=== PATIENT | female | born 1940 | race Caucasian/White ===

== ENCOUNTER 2025-05-19 05:54 | Inpatient (IN) | payer OTHER, SELFPAY ==
--- NOTE | 2025-04-28 11:52 | CM ---
Addendum entered by Qian Williamson RN 05/13/25 12:34:
Demographics: two story home
Living situation:Alone
Support Person Post Operatively: Daughters will provide supervision post operatively.
History of
VN: Current with [facility]
SNF: None
Outpatient : None, patient wants [facility]
Has patient purchased required equipment: yes, cane, walker, shower chair
PCP: Dr. Carpenter
Pharmacy: [facility]
Post Operative Discharge Plan: Home with [facility].
Addendum entered by Qian Williamson RN 05/05/25 14:24:
LEft message
Addendum entered by Qian Williamson RN 04/29/25 10:50:
Patient returned call. CM left another message.
Original Note:
CM left message for case management evaluation.
[2025-04-30 11:10] LABS: Hematocrit 35.2 % (37.0-47.0); Hemoglobin 11.4 g/dL (12.0-16.0); Mean Corp Hgb Conc. 32.4 g/dL (33.0-37.0); Mean Corpuscular Volume 94.1 fL (81.0-99.0); Platelet Count 270 10^3/uL (130-400); Red Cell Dist. Width 15.5 % (11.5-14.5)
[2025-04-30 11:32] LABS: ALT (SGPT) 20 U/L (0-35); AST (SGOT) 27 U/L (14-36); Albumin 4.0 g/dl (3.5-5.0); Alkaline Phosphatase 57 U/L (38-126); Blood Urea Nitrogen 19 mg/dl (7-17); Calcium 9.2 mg/dl (8.4-10.2); Carbon Dioxide 26 mmol/L (22-30); Chloride 111 mmol/L (98-107); Glucose 90 mg/dl (70-99); Potassium 3.8 mmol/L (3.5-5.1); Sodium 141 mmol/L (135-145); Total Protein 6.5 g/dl (6.3-8.2); eGFR > 60.00
[2025-04-30 11:46] LABS: Glycohemoglobin (HgbA1c) 5.6 % (4.0-5.6)
[2025-04-30 14:25] VITALS: BMI 22.7
[2025-04-30 18:25] VITALS: BMI 22.7
[2025-05-19] VITALS (13 sets, daily range): BP systolic 113–181; BP diastolic 62–94; PULSE 87; O2SAT 95
[2025-05-19] MEDS: TYLENOL 650 MG PO ×5 (06:21→23:29)
[2025-05-19] MEDS: CELEBREX 200 MG PO (06:21)
[2025-05-19] MEDS: NORMOSOL-R/PLASMALYTE-A 1000 IV ×2 (06:39→10:52)
[2025-05-19] MEDS: DILAUDID 2 MG PO ×3 (08:40→22:09)
[2025-05-19] MEDS: ZOFRAN 4 MG IV (08:46)
[2025-05-19] MEDS: DILAUDID 0.25 MG IV (09:22)
--- NOTE | 2025-05-19 10:25 | W.PN.UPDATE ---
Update Note
Progress Note Update
R knee OA s/p R TKA w/ Dr Hernandez 05/19/25
- s/p L TKA, 2022, by Dr. Cooper
DVT prophylaxis - ASA, b/l venous foot pumps
HTN - + parameters - monitor BP
NSVT, PACs - monitor on tele
- Continue BB
Chronic pain w/ opioid dependence - Dilaudid 2 mg TID w/ 4 mg q4hprn for breakthrough while inpatient
- Will also utilize Tylenol ATC, Decadron, Celebrex, Gabapentin HS, and lidocaine patches
- Was Rx Hydrocodone bitartrate/Acetaminophen 10/325 mg PO q6hprn by pain mgmt, Dr. Wells, on 04/29. Given 25 day supply
HLD
Subarachnoid hemorrhage 2013
Brain aneurysm s/p coiling
Ovarian cancer, 20 years, s/p YAZAN
Lung cancer, >20 years, s/p lobectomy, chemo; 2023 reoccurrence, s/p chemo, radiation, and immunotherapy
Hypothyroidism
Patient would benefit from Cefadroxil upon d/c
[2025-05-19] MEDS: PROCARDIA XL (EXTENDED RELEASE) PO (10:49)
[2025-05-19] MEDS: LIDOCAINE 4% PATCH 2 PATCH TOPICAL (10:51)
[2025-05-19] MEDS: SYNTHROID 75 MCG PO (10:51)
[2025-05-19] MEDS: AFRIN NASAL SPRAY 1 SPRAYS NASAL (10:52)
--- NOTE | 2025-05-19 11:07 | PTCARENOTE ---
Pt received s/p R TKA. AAOx3. NSR on tele, HRs 70s. SpO2 95% on 2L. VSS. IVF infusing per order. R knee dressing CDI. Thigh high TEDs and foot pumps on bilaterally. Neurovascular checks for RLE WDL. Pt resting in bed at this time, call martel in
reach. Family at bedside.
[2025-05-19] MEDS: ZESTRIL PO (15:06)
[2025-05-19] MEDS: ANCEF 5 IV ×2 (15:07→22:12)
[2025-05-19] MEDS: ASPIRIN 325 MG PO (17:11)
[2025-05-19] MEDS: DILAUDID 4 MG PO (18:43)
[2025-05-19] MEDS: DECADRON 4 MG PO (20:41)
[2025-05-19] MEDS: COLACE 100 MG PO (20:41)
[2025-05-19] MEDS: BACTROBAN 2% OINTMENT 1 APPLIC NASAL (20:42)
[2025-05-19] MEDS: PROCARDIA XL (EXTENDED RELEASE) 30 MG PO (20:43)
[2025-05-19] MEDS: PEPCID 20 MG PO (22:09)
[2025-05-19] MEDS: LIPITOR 10 MG PO (22:10)
[2025-05-19] MEDS: NEURONTIN 300 MG PO (22:10)
[2025-05-20] MEDS: TYLENOL 650 MG PO ×2 (03:07→08:26)
[2025-05-20] MEDS: SYNTHROID 75 MCG PO (05:14)
[2025-05-20] MEDS: DILAUDID 4 MG PO (05:34)
[2025-05-20 07:15] VITALS: BP 119/52
--- NOTE | 2025-05-20 08:14 | CM ---
Cm reviewed medical records. Patient is known to [facility]. Plan for [facility] to continue home care PT services. Referral sent via [facility].
PLAN: Home with [facility].
[2025-05-20] MEDS: BACTROBAN 2% OINTMENT 1 APPLIC NASAL (08:25)
[2025-05-20] MEDS: ASPIRIN 325 MG PO (08:25)
[2025-05-20] MEDS: CELEBREX 200 MG PO (08:25)
[2025-05-20] MEDS: ZESTRIL 40 MG PO (08:25)
[2025-05-20] MEDS: DECADRON 4 MG PO (08:26)
[2025-05-20] MEDS: TOPROL XL 12.5 MG PO (08:26)
[2025-05-20] MEDS: DILAUDID 2 MG PO (08:26)
[2025-05-20] MEDS: PROCARDIA XL (EXTENDED RELEASE) 30 MG PO (08:26)
[2025-05-20] MEDS: COLACE 100 MG PO (08:27)
[2025-05-20] MEDS: AFRIN NASAL SPRAY 1 SPRAYS NASAL (08:27)
[2025-05-20] MEDS: LIDOCAINE 4% PATCH 2 PATCH TOPICAL (08:28)
[2025-05-20 08:30] VITALS: BP 133/65; BP 145/71; PULSE 74; O2SAT 90
--- NOTE | 2025-05-20 09:44 | W.PN.ORTHO ---
Today's Communication / Plan
-
D/c today if remaining clinically stable, does well w/ PT.
Patient did well w/ OT this AM.
Assessment
.
Distal Motor Intact: Yes
Dressing:
Clean, dry and intact.
Assessment:
R knee OA s/p R TKA w/ Dr Hernandez 05/19/25
- s/p L TKA, 2022, by Dr. Cooper
DVT prophylaxis - ASA, b/l venous foot pumps
HTN - + parameters - BPs overall stable
NSVT, PACs - rhythm stable on tele (NSR)
- Continue BB
Chronic pain w/ opioid dependence - Dilaudid 2 mg TID w/ 4 mg q4hprn for breakthrough while inpatient
- Will also utilize Tylenol ATC, Decadron, Celebrex, Gabapentin HS, and lidocaine patches
- Was Rx Hydrocodone bitartrate/Acetaminophen 10/325 mg PO q6hprn by pain mgmt, Dr. Wells, on 04/29. Given 25 day supply
Lung cancer, >20 years, s/p lobectomy, chemo; 2023 reoccurrence, s/p chemo, radiation, and immunotherapy - O2 stable on RA
- Decadron to assist w/ breathing
- Continue rescue inhaler prn
- IS
HLD
Subarachnoid hemorrhage 2013
Brain aneurysm s/p coiling
Ovarian cancer, 20 years, s/p YAZAN
Hypothyroidism
Patient would benefit from Cefadroxil upon d/c
Plan
.
Surgery / Date: R TKA w/ Dr Hernandez 05/19/25
DVT Prophylaxis: Aspirin
Activity:
Out of bed.
PT/OT
Discharge Plan: Home w/ VN
Subjective
.
.:
Patient resting comfortably in bed.
R knee pain well controlled overall w/ current pain meds.
Does report some SOB after therapy this AM; however, she does have FOOTE at baseline and she reports this is her norm. Lungs CTA. Encouraged IS.
Eager for potential d/c today.
Vital Signs and Labs
.
Vital Signs and Labs:
Lab Results
04/30/25 10:38
04/30/25 10:38
Temp Pulse Resp BP Pulse Ox
98.7 F 79 18 119/52 93
05/20/25 07:15 05/20/25 07:15 05/20/25 07:15 05/20/25 07:15 05/20/25 07:15
Non-invasive Hgb result: 10.9
Physical Exam
-
HEENT: No pallor, cyanosis, or jaundice. Throat clear.
NECK: Supple. No JVD.
RESPIRATORY: Lungs clear to auscultation.
CVS: S1, S2 normal. RRR.�
ABDOMEN: Soft, non-tender. No distension.
EXTREMITIES: Expected post-surgical R knee edema. Strength equal, no calf pain with palpation/dorsiflexion. Calves soft.
REGULATORY CONSULTANT: AOx3. No focal deficits. clinical reimbursement specialist grossly intact
--- NOTE | 2025-05-20 10:04 | W.DS.TRANS ---
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
-
Discharge Instructions:
Sleep Apnea Risk Low
Discharge Diagnosis/Procedures R knee OA s/p R TKA w/ Dr Hernandez 05/19/25
Diet Other diet
Additional Diets Diabetic carb controlled diet x1 week for wound
healing/infection prevention.
Adequate hydration, minimize opioids, and wear
TEDs stockings to prevent low blood pressure/
dizziness.
Activity With Walker,As tolerated
Driving Restrictions Not until seen by your Dr
Bathing Restrictions OK to Shower
Other Services VN,PT
Wound Care Dressing to be removed 1 week post-surgery.
Instructions:
Stand-Alone Forms: Total Hip/Knee Replacement D/C
Changes to Home Medications: Yes
Discharge Medications:
DC Medications w/original date entered in [employer]
albuterol sulfate 90 mcg/actuation aerosol inhaler 2 puff inhalation QID PRN wheeze 04/29/25
atorvastatin 10 mg tablet 10 mg PO HS high cholesterol 04/29/25
levothyroxine 75 mcg tablet 75 mcg PO DAILY Thyroid 04/29/25
metoprolol succinate 25 mg tablet,extended release 24 hr 12.5 mg PO DAILY Blood Pressure 04/29/25
bdvoitsh-uvbh-oott 8 mg-folic 400 mcg-K 50 mcg-lutein 300 mcg tablet (Centrum Silver Women) 1 tab PO DAILY Supplement 04/29/25
oxymetazoline 0.05 % nasal spray (Afrin (oxymetazoline)) 1 spray intranasal ONCE nasal congestion 04/29/25
vitamin B complex 1 tab PO DAILY Supplement 04/29/25
mupirocin 2 % topical ointment 1 applic topical BID infection prevention #1 tube 04/30/25
cefadroxil 500 mg capsule 500 mg PO BID infection prevention #14 caps 05/02/25
celecoxib 200 mg capsule 200 mg PO DAILY Anti-inflammatory #14 caps 05/02/25
dexamethasone 4 mg tablet 4 mg PO BID inflammation #6 tabs 05/02/25
famotidine 20 mg tablet 20 mg PO HS GI prophylaxis #30 tabs 05/02/25
gabapentin 300 mg capsule 300 mg PO HS sleep/pain #10 caps 05/02/25
Saccharomyces boulardii 250 mg capsule (Florastor) 250 mg PO BID #14 caps 05/20/25
acetaminophen 325 mg tablet 650 mg (2 x 325 mg) PO Q6H PRN mild pain #60 tabs 05/20/25
aspirin 325 mg tablet 325 mg PO DAILY Blood Clot Prevention/Tx #0 tabs 05/20/25
docusate sodium 100 mg capsule 100 mg PO BID #30 caps 05/20/25
hydrocodone 10 mg-acetaminophen 325 mg tablet 1 tab PO Q6H PRN moderate-severe pain #100 tabs 05/20/25
lidocaine 4 % topical patch 2 patch topical DAILY #30 ea 05/20/25
lisinopril 40 mg tablet 40 mg PO DAILY Blood Pressure #1 tab 05/20/25
nifedipine 30 mg tablet,extended release 30 mg PO BID Blood Pressure #0 tabs 05/20/25
ondansetron HCl 4 mg tablet 4 mg PO Q6H PRN nausea and vomiting #30 tabs 05/20/25
sennosides 8.6 mg tablet (Lexie-divya) 17.2 mg (2 x 8.6 mg) PO BID #30 tabs 05/20/25
Home Medication Changes
cefadroxil 500 mg capsule 500 mg PO BID infection prevention #14 caps 05/02/25
celecoxib 200 mg capsule 200 mg PO DAILY Anti-inflammatory #14 caps 05/02/25
dexamethasone 4 mg tablet 4 mg PO BID inflammation #6 tabs 05/02/25
famotidine 20 mg tablet 20 mg PO HS GI prophylaxis #30 tabs 05/02/25
gabapentin 300 mg capsule 300 mg PO HS sleep/pain #10 caps 05/02/25
Saccharomyces boulardii 250 mg capsule (Florastor) 250 mg PO BID #14 caps 05/20/25
acetaminophen 325 mg tablet 650 mg (2 x 325 mg) PO Q6H PRN mild pain #60 tabs 05/20/25
docusate sodium 100 mg capsule 100 mg PO BID #30 caps 05/20/25
lidocaine 4 % topical patch 2 patch topical DAILY #30 ea 05/20/25
ondansetron HCl 4 mg tablet 4 mg PO Q6H PRN nausea and vomiting #30 tabs 05/20/25
sennosides 8.6 mg tablet (Lexie-divya) 17.2 mg (2 x 8.6 mg) PO BID #30 tabs 05/20/25
Pending Results: No
[2025-05-20 11:05] VITALS: BP 127/76; PULSE 81; O2SAT 90
[2025-05-20 11:15] VITALS: BP 140/72
== END 2025-05-20 12:22 | disposition home health service (06) | DRG 470 ==
LOC: 2 SOUTH 05:54
PROVIDERS: ADMITTING PHYSICIAN Orthopaedic Surgery; FAMILY PHYSICIAN Family Medicine; REFERRING PHYSICIAN Internal Medicine Cardiovascular Disease
PROC: 0SRC0J9 Replacement of Right Knee Joint with Synthetic Substitute, Cemented, Open Approach (ICD-10-PCS; 2025-05-19)
DX: M17.11 Unilateral primary osteoarthritis, right knee (principal); I47.20 Ventricular tachycardia, unspecified; F11.20 Opioid dependence, uncomplicated; C34.90 Malignant neoplasm of unspecified part of unspecified bronchus or lung; I10 Essential (primary) hypertension; G89.29 Other chronic pain; E78.5 Hyperlipidemia, unspecified; Z96.652 Presence of left artificial knee joint; I49.1 Atrial premature depolarization; E03.9 Hypothyroidism, unspecified; Z87.891 Personal history of nicotine dependence; Z79.899 Other long term (current) drug therapy; Z85.43 Personal history of malignant neoplasm of ovary
CPT/HCPCS: 36415; 73560; 80053; 83036; 85027; 86850; 86900; 86901; 87070; 97110; 97116; 97162; 97166; 97535; C1713; C1776